=== PATIENT | female | born 1960 | race Caucasian/White ===

== ENCOUNTER 2019-03-21 22:07 | Emergency (ER) | payer OTHER ==
[2019-03-22] MEDS: IBUPROFEN 200 MG TAB PO (02:04)
== END 2019-03-22 03:54 | disposition home or self-care (01) ==
LOC: FTE 22:07
DX: R51 Headache (principal); F17.210 Nicotine dependence, cigarettes, uncomplicated
CPT/HCPCS: 99281; Z7502